=== PATIENT | male | born 1940 | race African-American/Black ===

== ENCOUNTER → 2017-02-11 | Outpatient (CLI) | payer MEDICARE ==
[2017-02-11 14:51] LABS: ANION GAP 12 (5-19); BLOOD UREA NITROGEN 35 mg/dL (7-20); CALCIUM 8.7 mg/dL (8.4-10.2); CARBON DIOXIDE 24 mmol/L (22-30); CHLORIDE 109 mmol/L (98-107); CREATININE RESULT 3.01 mg/dL (0.52-1.25); GLUCOSE 84 mg/dL (75-110); POTASSIUM 5.2 mmol/L (3.6-5.0); SODIUM 144.8 mmol/L (137-145)
[2017-02-12 10:46] LABS: HEMATOCRIT 30.4 % (37.9-51.0); HEMOGLOBIN 10.3 g/dL (13.5-17.0); HGB HCT DIFFERENCE 0.5; MEAN CORPUSCULAR HEMOGLOBIN 30.6 pg (27.0-33.4); MEAN CORPUSCULAR VOLUME 90 fl (80-97); RED BLOOD COUNT 3.38 10^6/uL (4.35-5.55); RED CELL DISTRIBUTION WIDTH 13.7 % (11.5-14.0); WHITE BLOOD COUNT 4.6 10^3/uL (4.0-10.5)
[2017-02-12 11:50] LABS: APPEARANCE,URINE CLEAR; BILIRUBIN,URINE NEGATIVE (NEGATIVE); GLUCOSE, URINE NEGATIVE (NEGATIVE); KETONES,URINE NEGATIVE (NEGATIVE); LEUKOCYTE ESTERASE,URINE NEGATIVE (NEGATIVE); NITRITE,URINE NEGATIVE (NEGATIVE); PROTEIN,URINE 100 mg/dL (NEGATIVE); URINE SPECIFIC GRAVITY 1.009; UROBILINOGEN,URINE NEGATIVE mg/dL (<2.0)
== END ==
LOC: OD 12:35
PROVIDERS: ATTEND Internal Medicine Nephrology
DX: N18.3 Chronic kidney disease, stage 3 (moderate) (principal); D64.9 Anemia, unspecified; E87.5 Hyperkalemia; R80.9 Proteinuria, unspecified
CPT/HCPCS: 36415; 80048; 81001; 85025; 85027

== ENCOUNTER → 2017-03-08 | Outpatient (CLI) | payer MEDICARE ==
[2017-03-08 12:42] LABS: HEMATOCRIT 30.2 % (37.9-51.0); HEMOGLOBIN 10.2 g/dL (13.5-17.0); HGB HCT DIFFERENCE 0.4; MEAN CORPUSCULAR HEMOGLOBIN 30.2 pg (27.0-33.4); MEAN CORPUSCULAR HGB CONC 33.8 g/dL (32.0-36.0); MEAN CORPUSCULAR VOLUME 89 fl (80-97); RED BLOOD COUNT 3.38 10^6/uL (4.35-5.55); WHITE BLOOD COUNT 5.4 10^3/uL (4.0-10.5)
[2017-03-08 13:03] LABS: ANION GAP 10 (5-19); BLOOD UREA NITROGEN 50 mg/dL (7-20); CALCIUM 8.9 mg/dL (8.4-10.2); CARBON DIOXIDE 26 mmol/L (22-30); CHLORIDE 106 mmol/L (98-107); CREATININE RESULT 3.62 mg/dL (0.52-1.25); GLUCOSE 101 mg/dL (75-110); PHOSPHORUS 4.5 mg/dL (2.5-4.5); POTASSIUM 4.3 mmol/L (3.6-5.0); SODIUM 142.1 mmol/L (137-145)
== END ==
LOC: OD 12:03
PROVIDERS: ATTEND Internal Medicine Nephrology
DX: I12.9 Hypertensive chronic kidney disease with stage 1 through stage 4 chronic kidney disease, or unspecified chronic kidney disease (principal); N18.4 Chronic kidney disease, stage 4 (severe); R80.9 Proteinuria, unspecified; E87.5 Hyperkalemia
CPT/HCPCS: 36415; 80048; 83970; 84100; 85027

== ENCOUNTER → 2018-07-15 | Outpatient (CLI) | payer MEDICARE ==
[2018-07-15 13:29] LABS: ANION GAP 10 (5-19); BLOOD UREA NITROGEN 80 mg/dL (7-20); CALCIUM 8.8 mg/dL (8.4-10.2); CARBON DIOXIDE 18 mmol/L (22-30); CHLORIDE 114 mmol/L (98-107); GLUCOSE 110 mg/dL (75-110); POTASSIUM 5.9 mmol/L (3.6-5.0); SODIUM 141.9 mmol/L (137-145)
== END ==
LOC: OD 12:06
PROVIDERS: ATTEND Physician Assistant Medical
DX: N18.3 Chronic kidney disease, stage 3 (moderate) (principal)
CPT/HCPCS: 36415; 80048

== ENCOUNTER 2018-07-20 15:59 | Emergency (ER) | payer MEDICARE ==
--- NOTE | 2018-07-20 16:40 | ER Document Report ---
ED Medical Screen (RME) - General Chief Complaint: Abnormal Lab Results Stated Complaint: ABNORMAL LABS Time Seen by Provider: 07/20/18 16:31 Primary Care Provider: Ilana CHARLES MD [Primary Care Provider] - Follow up as needed Mode of Arrival: Ambulatory Information source: Patient, Relative TRAVEL OUTSIDE OF THE [place] IN LAST 30 DAYS: No - HPI Notes: 07/20/18 16:36 78 -year-old male with a history of chronic renal disease, HTN presents the ED for evaluation of his serum potassium, which was 6.1 when he was at dialysis today. Was advised by Dr. Charles, serging machine operator automatic, to come to the ER for further evaluation and management. pt recently had fistula placed but cannot be accessed yet until next month. he still is voiding. Denies fevers, chills, chest pain,palpitations, shortness of breath, dyspnea, nausea, vomiting, diarrhea, abdominal pain, hematuria,dizziness, syncope, headaches, wheezing, ST, URI, neck pain, weakness, bowel or bladder dysfunction, saddle anesthesia, numbness or tingling in bilateral upper or lower extremities equally, muscle paralysis, weakness in bilateral upper or lower extremities equally or rash.\ exam: s1s2 regular, lungs CTA, awake, alert and orientated. no abdominal tenderness. I have greeted and performed a rapid initial assessment of this patient. A comprehensive ED assessment and evaluation of the patient, analysis of test results and completion of medical decision making process will be conducted by an additional ED providers. - Related Data Allergies/Adverse Reactions: No Known Allergies Allergy (Verified 07/20/18 16:29) Physical Exam - Vital signs Vitals: Temp Pulse Resp BP Pulse Ox 97.8 F 67 16 161/60 H 100 07/20/18 16:23 07/20/18 16:23 07/20/18 16:23 07/20/18 16:23 07/20/18 16:23 Course - Vital Signs Vital signs: Temp Pulse Resp BP Pulse Ox 97.8 F 67 16 161/60 H 100 07/20/18 16:23 07/20/18 16:23 07/20/18 16:23 07/20/18 16:23 07/20/18 16:23 Doctor's Discharge - Discharge Referrals: Ilana CHARLES MD [Primary Care Provider] - Follow up as needed
[2018-07-20 18:11] LABS: ABSOLUTE BASOPHILS # (AUTO) 0.1 10^3/uL (0.0-0.2); ABSOLUTE EOSINOPHILS # (AUTO) 0.5 10^3/uL (0.0-0.6); ABSOLUTE LYMPHOCYTES (AUTO) 0.9 10^3/uL (0.5-4.7); ABSOLUTE MONOCYTES (AUTO) 0.3 10^3/uL (0.1-1.4); ABSOLUTE NEUT (AUTO) 2.6 10^3/uL (1.7-8.2); BASOPHILS % (AUTO) 1.2 % (0-2); EOSINOPHILS % (AUTO) 11.1 % (0-6); HEMATOCRIT 25.9 % (37.9-51.0); HEMOGLOBIN 8.7 g/dL (13.5-17.0); LYMPHOCYTES % (AUTO) 20.9 % (13-45); MEAN CORPUSCULAR HEMOGLOBIN 31.1 pg (27.0-33.4); MEAN CORPUSCULAR HGB CONC 33.7 g/dL (32.0-36.0); MEAN CORPUSCULAR VOLUME 93 fl (80-97); MONOCYTES % (AUTO) 7.5 % (3-13); PLATELET COUNT 209 10^3/uL (150-450); RED BLOOD COUNT 2.79 10^6/uL (4.35-5.55); RED CELL DISTRIBUTION WIDTH 14.2 % (11.5-14.0); SEGMENTED NEUTROPHILS % (AUTO) 59.3 % (42-78); TOTAL CELLS COUNTED % (AUTO) 100 %; WHITE BLOOD COUNT 4.3 10^3/uL (4.0-10.5)
[2018-07-20 18:33] LABS: ALANINE AMINOTRANSFERASE 34 U/L (21-72); ALBUMIN 3.6 g/dL (3.5-5.0); ALKALINE PHOSPHATASE 78 U/L (38-126); ANION GAP 9 (5-19); ASPARTATE AMINO TRANSFERASE 24 U/L (17-59); BILIRUBIN,DIRECT 0.2 mg/dL (0.0-0.4); BILIRUBIN,TOTAL 0.2 mg/dL (0.2-1.3); BLOOD UREA NITROGEN 73 mg/dL (7-20); CALCIUM 8.7 mg/dL (8.4-10.2); CARBON DIOXIDE 16 mmol/L (22-30); CHLORIDE 115 mmol/L (98-107); GLUCOSE 83 mg/dL (75-110); SODIUM 139.7 mmol/L (137-145); TOTAL PROTEIN 6.5 g/dL (6.3-8.2)
[2018-07-20 18:52] LABS: POTASSIUM 6.1 mmol/L (3.6-5.0)
--- NOTE | 2018-07-20 20:00 | ER Document Report ---
ED General - General Chief Complaint: Abnormal Lab Results Stated Complaint: ABNORMAL LABS Time Seen by Provider: 07/20/18 16:31 Primary Care Provider: Ilana CHARLES MD [Primary Care Provider] - Follow up tomorrow Mode of Arrival: Ambulatory Notes: Patient is a 78-year-old male with end-stage renal disease not currently on dialysis that presents to the emergency department for chief complaint of abnormal blood work. Patient was told that his potassium was high as an outpatient advised to come to the emergency department at this evaluated, and recheck. He states that he was recently diagnosed with end-stage renal disease, and had a fistula placed on 07/12/2018. He is due to see Dr. Charles with nephrology soon. He denies having any chest pain, palpitations, lightheadedness, dizziness, numbness, weakness, nausea or vomiting. He does still urinate some. Past Medical History: End-stage renal disease on dialysis, hypertension Past Surgical History: AV fistula placement, hernia repair, hand surgery Social History: Denies tobacco, alcohol or drug use. Family History: Reviewed and noncontributory for presenting illness Allergies: Reviewed, see documented allergy list. REVIEW OF SYSTEMS: Other than noted above, the 12 point review of systems was reviewed with the patient and were negative, all pertinent findings are included in the HPI. PHYSICAL EXAMINATION: Vital signs reviewed, nursing noted reviewed. GENERAL: Elderly male, no acute distress HEAD: Atraumatic, normocephalic. EYES: Eyes appear normal, extraocular movements intact, sclera anicteric, conjunctiva are normal. ENT: nares patent, oropharynx clear without exudates. Moist mucous membranes. NECK: Normal range of motion, supple without lymphadenopathy LUNGS: Breath sounds clear to auscultation bilaterally and equal. No wheezes rales or rhonchi. HEART: Regular rate and rhythm without murmurs ABDOMEN: Soft, nontender, normoactive bowel sounds. No rebound, guarding, or rigidity. No masses appreciated. EXTREMITIES: Nontender, good range of motion, no pitting or edema. NEUROLOGICAL: No focal neurological deficits. Moves all extremities spontaneously Motor and sensory grossly intact on exam. PSYCH: Normal mood, normal affect. SKIN: Warm, Dry, normal turgor, no rashes or lesions noted on exposed skin TRAVEL OUTSIDE OF THE [place] IN LAST 30 DAYS: No - Related Data Allergies/Adverse Reactions: No Known Allergies Allergy (Verified 07/20/18 16:29) Past Medical History - General Information source: Patient, Relative - Social History Smoking Status: Never Smoker Frequency of alcohol use: None Drug Abuse: None Family History: Reviewed & Not Pertinent Patient has suicidal ideation: No Patient has homicidal ideation: No - Past Medical History Cardiac Medical History: Reports: Hx Hypertension Renal/ Medical History: Reports: Hx End Stage Renal Disease. Denies: Hx Peritoneal Dialysis Past Surgical History: Reports: Hx Abdominal Surgery - hernia repair, Hx Orthopedic Surgery - right hand Physical Exam - Vital signs Vitals: Temp Pulse Resp BP Pulse Ox 97.8 F 67 16 161/60 H 100 07/20/18 16:23 07/20/18 16:23 07/20/18 16:23 07/20/18 16:23 07/20/18 16:23 Course - Re-evaluation Re-evalutation: Patient seen and examined vital signs reviewed. Laboratory data and/or imaging were ordered as appropriate for the patient's presenting symptoms and complaint, with consideration of any critical or life threatening conditions that may be associated with their obtained history and exam as noted above. Patient was treated with IV bicarb, insulin, glucose, calcium, and given IV Lasix and Veltassa Results were reviewed when available and demonstrated potassium of 6.1, with elevated BUN and creatinine, with a creatinine greater than 6. Which appears to be the patient's new baseline, he was noted to be acidotic, with a bicarb of 16. The patient was re-evaluated and was stable, asymptomatic, repeat potassium was ordered Evaluation was most consistent with hyperkalemia, in a patient with end-stage renal disease on dialysis, I did discuss this case with Dr. Lopez with nephrology, she recommended starting the patient on sodium bicarbonate 650 mg twice daily, to help with the acidosis which is likely leading to the patient's mild degree of hyperkalemia. Results were discussed with the patient at this point, after careful consideration I feel that that patient can be discharged from the emergency department, the patient was educated treatments and reasons to return to the emergency department based on their presumed diagnosis as noted above, they were advised to followup with a primary care physician in 2-3 days. Patient was agreeable to plan of care. *Note is created using voice recognition software and may contain spelling, syntax or grammatical errors. Laboratory 04/17/19 04/17/19 04/17/19 17:49 17:49 17:49 WBC 4.3 RBC 2.79 L Hgb 8.7 L Hct 25.9 L MCV 93 MCH 31.1 MCHC 33.7 RDW 14.2 H Plt Count 209 Seg Neutrophils % 59.3 Lymphocytes % 20.9 Monocytes % 7.5 Eosinophils % 11.1 H Basophils % 1.2 Absolute Neutrophils 2.6 Absolute Lymphocytes 0.9 Absolute Monocytes 0.3 Absolute Eosinophils 0.5 Absolute Basophils 0.1 Sodium 139.7 Potassium 6.1 H* Chloride 115 H Carbon Dioxide 16 L Anion Gap 9 BUN 73 H Creatinine 6.58 H Est GFR ( Amer) 10 L Est GFR (Non-Af Amer) 8 L Glucose 83 Calcium 8.7 Total Bilirubin 0.2 Direct Bilirubin 0.2 Neonat Total Bilirubin Not Reportable Neonat Direct Bilirubin Not Reportable Neonat Indirect Bili Not Reportable AST 24 ALT 34 Alkaline Phosphatase 78 Troponin I 0.013 Total Protein 6.5 Albumin 3.6 - Vital Signs Vital signs: Temp Pulse Resp BP Pulse Ox 97.8 F 67 17 158/71 H 100 07/20/18 16:23 07/20/18 16:23 07/21/18 00:43 07/20/18 23:01 07/21/18 00:43 - Laboratory Result Diagrams: 07/20/18 17:49 07/20/18 23:45 Laboratory results interpreted by me: 07/20/18 07/20/18 07/20/18 17:49 17:49 23:45 RBC 2.79 L Hgb 8.7 L Hct 25.9 L RDW 14.2 H Eosinophils % 11.1 H Potassium 6.1 H* 5.5 H Chloride 115 H 115 H Carbon Dioxide 16 L 18 L BUN 73 H 77 H Creatinine 6.58 H 5.92 H Est GFR ( Amer) 10 L 11 L Est GFR (Non-Af Amer) 8 L 9 L Glucose 165 H - EKG Interpretation by Me Additional EKG results interpreted by me: EKG demonstrates sinus rhythm with first-degree AV block, with a ventricular rate of 61 bpm, left axis deviation, QTC 387 ms, there are T wave inversions in leads V3 through V6, no prior for comparison. Discharge - Discharge Clinical Impression: Hyperkalemia Condition: Stable Disposition: HOME, SELF-CARE Instructions: Kidney Failure ([facility]) Additional Instructions: Your potassium was slightly high today, he received treatment to lower your potassium, he will need to take sodium bicarbonate, this has been prescribed twice daily to help keep the potassium level, please call Dr. Charles's office tomorrow, to schedule follow-up appointment and outpatient testing to recheck the potassium in a few days. Prescriptions: Sodium Bicarbonate [Sodium Bicarbonate 650 mg Tablet] 650 mg PO BID #60 tablet Referrals: Ilana CHARLES MD [Primary Care Provider] - Follow up tomorrow
[2018-07-20] MEDS ORDERED: SODIUM BICARBONATE 8.4% INJ 50 MEQ/50 ML DISP.SYRIN IV ONE (20:12)
[2018-07-20] MEDS ORDERED: FUROSEMIDE INJ/PF 40 MG/4 ML SDV IV ONE (20:18)
[2018-07-20] MEDS ORDERED: CALCIUM GLUCONATE 1000 MG/10 ML INJ IV ONE (20:19)
[2018-07-20] MEDS ORDERED: INSULIN REG, HUMAN 100 UNIT/ML 3 ML VIAL (PYX) INJ ONE (20:19)
[2018-07-20] MEDS ORDERED: DEXTROSE 50%-WATER 25 GM/50 ML DISP.SYRIN IV ONE (20:19)
[2018-07-20] MEDS ORDERED: SODIUM POLYSTYRENE SULFONATE 15 GM/60 ML PO ONE (20:19)
--- NOTE | 2018-07-20 21:51 | EKG REPORT ---
SEVERITY:- ABNORMAL ECG - SINUS RHYTHM VENTRICULAR TRIGEMINY FIRST DEGREE AV BLOCK LEFT ANTERIOR FASCICULAR BLOCK ABNORMAL T, CONSIDER ISCHEMIA, ANT-LAT LEADS : Confirmed by: Ursula Neff MD 20-Jul-2018 21:50:58
[2018-07-20] MEDS ORDERED: PATIROMER 8.4 GM SUSP PACKET PO ONE (22:09)
[2018-07-20] MEDS ORDERED: PATIROMER 8.4 GM SUSP PACKET ONE (22:20)
[2018-07-20 23:34] VITALS: BP 158/71
[2018-07-21 00:08] LABS: ANION GAP 8 (5-19); BLOOD UREA NITROGEN 77 mg/dL (7-20); CALCIUM 9.1 mg/dL (8.4-10.2); CARBON DIOXIDE 18 mmol/L (22-30); CHLORIDE 115 mmol/L (98-107); GLUCOSE 165 mg/dL (75-110); POTASSIUM 5.5 mmol/L (3.6-5.0); SODIUM 141.1 mmol/L (137-145)
== END 2018-07-21 00:43 | disposition home or self-care (01) ==
LOC: ER 15:59
DX: E87.5 Hyperkalemia (principal); I12.0 Hypertensive chronic kidney disease with stage 5 chronic kidney disease or end stage renal disease; N18.6 End stage renal disease; Z99.2 Dependence on renal dialysis
CPT/HCPCS: 93005; 99283; 96374; 96375; 36415; 85025; 80048; 80053; 84484; 93010; J0610; J3490 ×3; J1940; A9270; 84132; J1815

== ENCOUNTER → 2018-07-20 | Outpatient (CLI) | payer MEDICARE | LOC: OD 12:06 | PROVIDERS: ATTEND Internal Medicine Nephrology | DX: E87.5 Hyperkalemia (principal) | CPT/HCPCS: 36415; 84132 ==

== ENCOUNTER → 2018-08-04 | Outpatient (CLI) | payer MEDICARE ==
[2018-08-04 13:29] LABS: ABSOLUTE BASOPHILS # (AUTO) 0.1 10^3/uL (0.0-0.2); ABSOLUTE EOSINOPHILS # (AUTO) 0.6 10^3/uL (0.0-0.6); ABSOLUTE MONOCYTES (AUTO) 0.4 10^3/uL (0.1-1.4); ABSOLUTE NEUT (AUTO) 3.4 10^3/uL (1.7-8.2); BASOPHILS % (AUTO) 1.2 % (0-2); HEMATOCRIT 26.4 % (37.9-51.0); HEMOGLOBIN 8.9 g/dL (13.5-17.0); MEAN CORPUSCULAR HEMOGLOBIN 30.5 pg (27.0-33.4); MEAN CORPUSCULAR HGB CONC 33.7 g/dL (32.0-36.0); MEAN CORPUSCULAR VOLUME 91 fl (80-97); MONOCYTES % (AUTO) 6.8 % (3-13); RED BLOOD COUNT 2.92 10^6/uL (4.35-5.55); RED CELL DISTRIBUTION WIDTH 14.1 % (11.5-14.0); TOTAL CELLS COUNTED % (AUTO) 100 %; WHITE BLOOD COUNT 5.5 10^3/uL (4.0-10.5)
[2018-08-04 13:41] LABS: ALANINE AMINOTRANSFERASE 64 U/L (21-72); ALBUMIN 3.6 g/dL (3.5-5.0); ALKALINE PHOSPHATASE 87 U/L (38-126); ANION GAP 12 (5-19); ASPARTATE AMINO TRANSFERASE 37 U/L (17-59); BILIRUBIN,DIRECT 0.3 mg/dL (0.0-0.4); BILIRUBIN,TOTAL 0.3 mg/dL (0.2-1.3); BLOOD UREA NITROGEN 58 mg/dL (7-20); CALCIUM 8.3 mg/dL (8.4-10.2); CARBON DIOXIDE 24 mmol/L (22-30); CHLORIDE 108 mmol/L (98-107); GLUCOSE 88 mg/dL (75-110); IRON(TIBC) 65.4 ug/dL (49-181); PHOSPHORUS 4.5 mg/dL (2.5-4.5); POTASSIUM 5.1 mmol/L (3.6-5.0); SODIUM 143.8 mmol/L (137-145); TOTAL PROTEIN 6.4 g/dL (6.3-8.2)
[2018-08-04 13:54] LABS: PLATELET COUNT 185 10^3/uL (150-450)
== END ==
LOC: OD 11:45
PROVIDERS: ATTEND Internal Medicine Nephrology
DX: N18.5 Chronic kidney disease, stage 5 (principal); D64.9 Anemia, unspecified
CPT/HCPCS: 36415; 80053; 82728; 83540; 83550; 83735; 83970; 84100; 85025

== ENCOUNTER → 2018-08-16 | Outpatient (CLI) | payer MEDICARE ==
[2018-08-16 14:43] LABS: HEMATOCRIT 24.8 % (37.9-51.0); HEMOGLOBIN 8.4 g/dL (13.5-17.0); MEAN CORPUSCULAR HEMOGLOBIN 30.6 pg (27.0-33.4); MEAN CORPUSCULAR HGB CONC 33.7 g/dL (32.0-36.0); MEAN CORPUSCULAR VOLUME 91 fl (80-97); PLATELET COUNT 194 10^3/uL (150-450); RED BLOOD COUNT 2.73 10^6/uL (4.35-5.55); RED CELL DISTRIBUTION WIDTH 13.6 % (11.5-14.0); WHITE BLOOD COUNT 4.1 10^3/uL (4.0-10.5)
[2018-08-16 14:53] LABS: APPEARANCE,URINE CLEAR; BILIRUBIN,URINE NEGATIVE (NEGATIVE); COLOR,URINE YELLOW; GLUCOSE, URINE NEGATIVE (NEGATIVE); KETONES,URINE NEGATIVE (NEGATIVE); LEUKOCYTE ESTERASE,URINE NEGATIVE (NEGATIVE); NITRITE,URINE NEGATIVE (NEGATIVE); PROTEIN,URINE >=500 mg/dL (NEGATIVE); URINE SPECIFIC GRAVITY 1.013; UROBILINOGEN,URINE NEGATIVE mg/dL (<2.0)
[2018-08-16 15:05] LABS: ANION GAP 9 (5-19); BLOOD UREA NITROGEN 55 mg/dL (7-20); CALCIUM 8.3 mg/dL (8.4-10.2); CARBON DIOXIDE 26 mmol/L (22-30); CHLORIDE 108 mmol/L (98-107); GLUCOSE 96 mg/dL (75-110); POTASSIUM 4.4 mmol/L (3.6-5.0); SODIUM 143.1 mmol/L (137-145)
== END ==
LOC: OD 13:46
PROVIDERS: ATTEND Internal Medicine Nephrology
DX: I12.0 Hypertensive chronic kidney disease with stage 5 chronic kidney disease or end stage renal disease (principal); N18.5 Chronic kidney disease, stage 5; E87.5 Hyperkalemia; D63.1 Anemia in chronic kidney disease
CPT/HCPCS: 36415; 80048; 81001; 85027

== ENCOUNTER → 2018-08-22 | Outpatient (CLI) | payer MEDICARE ==
[2018-08-22 14:47] LABS: ANION GAP 8 (5-19); BLOOD UREA NITROGEN 54 mg/dL (7-20); CALCIUM 8.4 mg/dL (8.4-10.2); CARBON DIOXIDE 26 mmol/L (22-30); CHLORIDE 106 mmol/L (98-107); GLUCOSE 125 mg/dL (75-110); POTASSIUM 4.1 mmol/L (3.6-5.0); SODIUM 139.9 mmol/L (137-145)
[2018-08-23 07:40] LABS: HEPATITIS BE ANTIGEN Negative (Negative); HEPATITIS C VIRUS AB <0.1 s/co ratio (0.0-0.9); HEPATITS B SURFACE ANTIGEN Negative (Negative)
[2018-08-23 10:55] LABS: HEPATITIS B CORE AB TOT Positive (Negative)
== END ==
LOC: OD 13:30
PROVIDERS: ATTEND Internal Medicine Nephrology
DX: Z11.59 Encounter for screening for other viral diseases (principal); N18.5 Chronic kidney disease, stage 5; R80.9 Proteinuria, unspecified
CPT/HCPCS: 36415; 80048; 86704; 86803; 86804; 87340; 87350

== ENCOUNTER 2018-09-07 07:36 | Outpatient (CLI) | payer MEDICARE ==
[2018-09-07] MEDS ORDERED: ACETAMINOPHEN 325 MG TABLET PO PRN (08:16)
[2018-09-07] MEDS ORDERED: DIPHENHYDRAMINE HCL 25 MG CAPSULE PO PRN (08:17)
[2018-09-07] MEDS ORDERED: FUROSEMIDE INJ/PF 40 MG/4 ML SDV IV PRN (08:18)
[2018-09-07 14:13] VITALS: BP 174/65
== END 2018-09-07 14:34 | disposition home or self-care (01) ==
LOC: II 07:36 → 5TH 07:37 → II 14:34
PROVIDERS: ATTEND Internal Medicine Nephrology
PROC: 30233N1 Transfusion of Nonautologous Red Blood Cells into Peripheral Vein, Percutaneous Approach (ICD-10-PCS; principal; 2018-09-07)
PROC: 3E033GC Introduction of Other Therapeutic Substance into Peripheral Vein, Percutaneous Approach (ICD-10-PCS; 2018-09-07)
DX: N18.6 End stage renal disease (principal); D63.1 Anemia in chronic kidney disease
CPT/HCPCS: 86900; 86901; 36430; 86850; 86920; P9016; A9270 ×2; J1940; 96374

== ENCOUNTER 2019-03-13 16:18 | Emergency (ER) | payer MEDICARE ==
--- NOTE | 2019-03-13 17:31 | ER Document Report ---
HPI - HPI Time Seen by Provider: 03/13/19 17:22 Notes: 79-year-old male patient sent over from dialysis with concern for bleeding from the fistula site. Patient reports that he thinks the dialysis people overreacted as he always has mild bleeding after dialysis. He denies any current bleeding. - REPRODUCTIVE Reproductive: DENIES: : Past Medical History - General Information source: Patient - Social History Smoking Status: Never Smoker Frequency of alcohol use: None Family History: Reviewed & Not Pertinent - Past Medical History Cardiac Medical History: Reports: Hx Hypertension Renal/ Medical History: Reports: Hx End Stage Renal Disease. Denies: Hx Peritoneal Dialysis Past Surgical History: Reports: Hx Abdominal Surgery - hernia repair, Hx Orthopedic Surgery - right hand - Immunizations Hx Diphtheria, Pertussis, Tetanus Vaccination: Yes Vertical Provider Document - CONSTITUTIONAL Notes: PHYSICAL EXAMINATION: GENERAL: Well-appearing, well-nourished and in no acute distress. HEAD: Atraumatic, normocephalic. EYES: Pupils equal round and reactive to light, extraocular movements intact, sclera anicteric, conjunctiva are normal. ENT: Nares patent, oropharynx clear without exudates. Moist mucous membranes. NECK: Normal range of motion, supple without lymphadenopathy LUNGS: Breath sounds clear to auscultation bilaterally and equal. No wheezes rales or rhonchi. HEART: Regular rate and rhythm without murmurs ABDOMEN: Soft, nontender, nondistended abdomen. No guarding, no rebound. No masses appreciated. Musculoskeletal: Normal range of motion, no pitting or edema. No cyanosis. NEUROLOGICAL: Cranial nerves grossly intact. Normal speech, normal gait. Normal sensory, motor exams PSYCH: Normal mood, normal affect. SKIN: No bleeding noted at the fistula in the left upper arm. Thrill noted. Strong radial pulse. - INFECTION CONTROL TRAVEL OUTSIDE OF THE [place] IN LAST 30 DAYS: No Course - Re-evaluation Re-evalutation: Patient appears well, nontoxic, no bleeding noted from his fistula site. Patient reports this is common for him that he has a small amount of bleeding immediately after dialysis however he states that this usually resolves quickly. Patient ready for discharge home. The patient's emergency department workup and current diagnosis were explained to the patient and or family. Follow-up instructions were provided. Medications if prescribed were discussed. Instructions for when to return to the emergency department including specific worrisome symptoms were discussed with the patient and/or family. Discharge - Discharge Clinical Impression: Bleeding from fistula site resolved Condition: Stable Disposition: HOME, SELF-CARE Additional Instructions: You were seen in the emergency department, the bleeding from your fistula site has stopped. Please keep the dressing in place for the next 1 to 2 hours then remove it. Please keep any and all follow-up appointments that you have with your primary care providers and keep the appointment for your fistulogram tomorrow. Return to the ER with any new or worsening concerns. Referrals: Ilana MEDRANO MD [Primary Care Provider] - Follow up as needed
[2019-03-13 17:37] VITALS: BP 148/68
== END 2019-03-13 17:45 | disposition home or self-care (01) ==
LOC: ER 16:18
DX: T82.838A Hemorrhage due to vascular prosthetic devices, implants and grafts, initial encounter (principal); Y84.1 Kidney dialysis as the cause of abnormal reaction of the patient, or of later complication, without mention of misadventure at the time of the procedure; I12.0 Hypertensive chronic kidney disease with stage 5 chronic kidney disease or end stage renal disease; N18.6 End stage renal disease; Z99.2 Dependence on renal dialysis
CPT/HCPCS: 99282